=== PATIENT | female | born 1980 | race Caucasian/White ===

== ENCOUNTER 2016-07-02 03:33 | Emergency (ER) | payer OTHER ==
[~2016-07-02] VITALS: Ht 157.5 cm; Wt 54.5 kg
[2016-07-02 03:42] VITALS: TEMP 97.5
[2016-07-02 04:12] LABS: BASO # 0.1 (0.0-0.2); BASO % 0.6 % (0.0-2.0); EOS # 0.5 (0.0-0.7); EOS % 4.9 % (0-4.0); GRAN % 43.2 % (42.2-75.2); HEMATOCRIT 38.2 % (37.0-47.0); HEMOGLOBIN 13.5 g/dl (12.5-16.0); LYMPH # 4.2 (1.2-3.4); LYMPH % 44.7 % (20.0-51.0); MEAN CELL VOLUME 93 fl (80.0-100.0); MEAN CORPUSCULAR HEMOGLOBIN 33 pg (27.0-31.0); MEAN CORPUSCULAR HGB CONC 35 g/dl (33.0-37.0); MEAN PLATELET VOLUME 10.8 fl (7.4-10.4); MONO # 0.6 (0.1-0.6); MONO % 6.3 % (1.7-9.3); PLATELET COUNT 269 K/mm3 (130-400); RED BLOOD COUNT 4.12 M/mm3 (4.10-5.30); REDCELL DISTRIBUTION WIDTH-CV 13.2 % (11.5-14.5); WHITE BLOOD COUNT 9.4 K/mm3 (4.8-10.8)
[2016-07-02 04:19] LABS: PH 6 (5-8); SQUAMOUS EPITHELIAL 0-2 /hpf; URINE APPEARANCE Clear; URINE BACTERIA Rare /hpf; URINE BILIRUBIN Negative (NEGATIVE); URINE BLOOD 2+ (NEGATIVE); URINE COLOR Yellow; URINE GLUCOSE Negative (NEGATIVE); URINE KETONE Negative (NEGATIVE); URINE UROBILINOGEN Negative (NEGATIVE); URINE WBC 0-2 /hpf
[2016-07-02 04:22] LABS: CALCIUM 8.8 mg/dL (8.4-10.2); CREATININE, serum 0.56 mg/dL (0.52-1.25); POTASSIUM 3.5 mmol/L (3.4-5.0)
[2016-07-02] MEDS ORDERED: NORCO 325 MG-51 TAB PO (04:58)
[2016-07-02 05:18] VITALS: BP 128/76; PULSE 92
== END 2016-07-02 05:21 | disposition home or self-care (01) ==
LOC: COL.ER 03:33
PROVIDERS: Emergency Medicine
DX: N20.1 Calculus of ureter (principal); N23 Unspecified renal colic; F17.210 Nicotine dependence, cigarettes, uncomplicated; Z87.442 Personal history of urinary calculi
CPT/HCPCS: J1170; J1885; J2550; J7040

== ENCOUNTER 2016-10-31 13:48 | Emergency (ER) | payer OTHER ==
[~2016-10-31] VITALS: Ht 152.4 cm; Wt 59.5 kg
[~2016-10-31 13:48] MED LIST: NORCO 325 MG-51 TAB PO
[2016-10-31 13:50] VITALS: TEMP 99.4
[2016-10-31 14:32] LABS: PH 5 (5-8); SQUAMOUS EPITHELIAL 0-2 /hpf; URINE APPEARANCE Clear; URINE BACTERIA Rare /hpf; URINE BILIRUBIN Negative (NEGATIVE); URINE BLOOD 1+ (NEGATIVE); URINE COLOR Yellow; URINE GLUCOSE Negative (NEGATIVE); URINE KETONE Negative (NEGATIVE); URINE RBC 0-2 /hpf; URINE UROBILINOGEN Negative (NEGATIVE); URINE WBC 0-2 /hpf
[2016-10-31 14:32] LABS: BASO % 0.3 % (0.0-2.0); EOS # 0.2 (0.0-0.7); EOS % 2.1 % (0-4.0); GRAN # 5.6 (1.4-6.5); GRAN % 65.3 % (42.2-75.2); HEMATOCRIT 43.9 % (37.0-47.0); HEMOGLOBIN 15.2 g/dl (12.5-16.0); LYMPH # 2.3 (1.2-3.4); LYMPH % 26.6 % (20.0-51.0); MEAN CELL VOLUME 94 fl (80.0-100.0); MEAN CORPUSCULAR HEMOGLOBIN 33 pg (27.0-31.0); MEAN CORPUSCULAR HGB CONC 35 g/dl (33.0-37.0); MEAN PLATELET VOLUME 11.5 fl (7.4-10.4); MONO # 0.5 (0.1-0.6); MONO % 5.4 % (1.7-9.3); PLATELET COUNT 245 K/mm3 (130-400); RED BLOOD COUNT 4.67 M/mm3 (4.10-5.30); REDCELL DISTRIBUTION WIDTH-CV 13.1 % (11.5-14.5); WHITE BLOOD COUNT 8.6 K/mm3 (4.8-10.8)
[2016-10-31 14:44] LABS: ADJUSTED CALCIUM 9.2 mg/dL (8.4-10.2); ALANINE AMINOTRANSFERASE 27 U/L (9-52); ALBUMIN 4.6 gm/dL (3.5-5.0); ALKALINE PHOSPHATASE 74 U/L (50-136); ANION GAP 10 mmol/L (7-16); BILIRUBIN,TOTAL 0.8 mg/dL (0.0-1.0); BLOOD UREA NITROGEN 6 mg/dL (7-17); C-REACTIVE PROTEIN < 0.5 mg/dL (0.0-0.9); CALCIUM 9.7 mg/dL (8.4-10.2); CARBON DIOXIDE 21 mmol/L (22-30); CHLORIDE 108 mmol/L (98-107); CREATININE, serum 0.59 mg/dL (0.52-1.25); GLUCOSE 90 mg/dL (74-106); SODIUM 139 mmol/L (137-145); TOTAL PROTEIN 8.1 gm/dL (6.4-8.2)
[2016-10-31] MEDS ORDERED: ZOFRAN 4MG T4 MG/TAB PO (15:23)
[2016-10-31] MEDS ORDERED: NORCO 325 MG-51 TAB PO (15:23)
[2016-10-31 15:42] VITALS: BP 111/79; PULSE 70
== END 2016-10-31 15:40 | disposition home or self-care (01) ==
LOC: COL.ER 13:48
PROVIDERS: Emergency Medicine
DX: N23 Unspecified renal colic (principal); Z87.442 Personal history of urinary calculi
CPT/HCPCS: J1170; J2405; J7030

== ENCOUNTER 2017-03-26 07:47 | Emergency (ER) | payer SELFPAY ==
[~2017-03-26] VITALS: Ht 152.4 cm; Wt 60.0 kg
[~2017-03-26 07:47] MED LIST changes: +ZOFRAN 4MG T4 MG/TAB PO
[2017-03-26 07:53] VITALS: TEMP 99.3
[2017-03-26 08:34] LABS: COLLECTION METHOD CLEAN CATCH
[2017-03-26 08:42] LABS: BASO % 0.3 % (0.0-2.0); EOS % 0.2 % (0-4.0); GRAN # 3.9 (1.4-6.5); GRAN % 62.7 % (42.2-75.2); HEMATOCRIT 42.1 % (37.0-47.0); HEMOGLOBIN 14.4 g/dl (12.5-16.0); LYMPH # 1.7 (1.2-3.4); LYMPH % 27.8 % (20.0-51.0); MEAN CELL VOLUME 92 fl (80.0-100.0); MEAN CORPUSCULAR HEMOGLOBIN 31 pg (27.0-31.0); MEAN CORPUSCULAR HGB CONC 34 g/dl (33.0-37.0); MEAN PLATELET VOLUME 11.2 fl (7.4-10.4); MONO # 0.5 (0.1-0.6); MONO % 8.8 % (1.7-9.3); PLATELET COUNT 229 K/mm3 (130-400); REDCELL DISTRIBUTION WIDTH-CV 13.3 % (11.5-14.5)
[2017-03-26 08:50] LABS: ALBUMIN 4.3 gm/dL (3.5-5.0); BILIRUBIN,TOTAL 0.4 mg/dL (0.0-1.0); CREATININE, serum 0.62 mg/dL (0.52-1.25); POTASSIUM 3.8 mmol/L (3.4-5.0); TOTAL PROTEIN 7.6 gm/dL (6.4-8.2)
[2017-03-26 09:00] LABS: PH 7 (5-8); URINE APPEARANCE Hazy; URINE BILIRUBIN Negative (NEGATIVE); URINE BLOOD 2+ (NEGATIVE); URINE COLOR Yellow; URINE GLUCOSE Negative (NEGATIVE); URINE KETONE 1+ (NEGATIVE); URINE LEUKOCYTE ESTERASE Negative (NEGATIVE); URINE NITRATE Negative (NEGATIVE); URINE PROTEIN(semi-quant) Negative (NEGATIVE)
[2017-03-26 09:02] LABS: MUCOUS Present /lpf; URINE BACTERIA None Seen /hpf
[2017-03-26 10:17] VITALS: BP 105/80; PULSE 88
== END 2017-03-26 10:18 | disposition home or self-care (01) ==
LOC: COL.ER 07:47
PROVIDERS: Emergency Medicine
DX: B34.9 Viral infection, unspecified (principal)
CPT/HCPCS: J1885; J2765; J3010; J7030

== ENCOUNTER 2017-05-30 14:43 | Emergency (ER) | payer SELFPAY ==
[~2017-05-30] VITALS: Ht 152.4 cm; Wt 59.1 kg
[2017-05-30 14:44] VITALS: BP 134/59; PULSE 77; TEMP 98.4
[2017-05-30] MEDS ORDERED: IBU400 MG PO (14:50)
[2017-05-30] MEDS ORDERED: SUDAFED 12 HOU120 MG PO (14:50)
[2017-05-30] MEDS ORDERED: CLEOCIN HC150 MG/CAP PO (15:04)
== END 2017-05-30 15:09 | disposition home or self-care (01) ==
LOC: COL.ER 14:43
DX: J32.0 Chronic maxillary sinusitis (principal); F17.210 Nicotine dependence, cigarettes, uncomplicated; Z87.442 Personal history of urinary calculi

== ENCOUNTER 2017-08-01 12:50 | Emergency (ER) | payer SELFPAY ==
[~2017-08-01] VITALS: Ht 152.4 cm; Wt 59.1 kg
[~2017-08-01 12:50] MED LIST changes: +CLEOCIN HC150 MG/CAP PO; +IBU400 MG PO; +SUDAFED 12 HOU120 MG PO
[2017-08-01 12:54] VITALS: TEMP 98.2
[2017-08-01 13:14] LABS: COLLECTION METHOD CLEAN CATCH
[2017-08-01 13:17] LABS: BASO % 0.4 % (0.0-2.0); EOS # 0.1 (0.0-0.7); EOS % 1.2 % (0-4.0); GRAN # 6.4 (1.4-6.5); GRAN % 63.7 % (42.2-75.2); HEMATOCRIT 41.3 % (37.0-47.0); HEMOGLOBIN 14.7 g/dl (12.5-16.0); LYMPH # 2.9 (1.2-3.4); LYMPH % 28.6 % (20.0-51.0); MEAN CELL VOLUME 92 fl (80.0-100.0); MEAN CORPUSCULAR HEMOGLOBIN 33 pg (27.0-31.0); MEAN CORPUSCULAR HGB CONC 36 g/dl (33.0-37.0); MEAN PLATELET VOLUME 11.5 fl (7.4-10.4); MONO # 0.6 (0.1-0.6); MONO % 5.8 % (1.7-9.3); PLATELET COUNT 290 K/mm3 (130-400); REDCELL DISTRIBUTION WIDTH-CV 13.2 % (11.5-14.5)
[2017-08-01 13:21] LABS: MUCOUS Present /lpf; PH 7 (5-8); URINE APPEARANCE Hazy; URINE BACTERIA Rare /hpf; URINE BILIRUBIN Negative (NEGATIVE); URINE BLOOD Negative (NEGATIVE); URINE COLOR Yellow; URINE GLUCOSE Negative (NEGATIVE); URINE KETONE Negative (NEGATIVE); URINE LEUKOCYTE ESTERASE Negative (NEGATIVE); URINE NITRATE Negative (NEGATIVE); URINE PROTEIN(semi-quant) 1+ (NEGATIVE); URINE RBC 0-2 /hpf; URINE UROBILINOGEN Negative (NEGATIVE)
[2017-08-01 13:27] LABS: ALBUMIN 4.6 gm/dL (3.5-5.0); BILIRUBIN,TOTAL 0.8 mg/dL (0.0-1.0); CALCIUM 9.4 mg/dL (8.4-10.2); CREATININE, serum 0.61 mg/dL (0.52-1.25); POTASSIUM 3.6 mmol/L (3.4-5.0); TOTAL PROTEIN 8.5 gm/dL (6.4-8.2)
[2017-08-01] MEDS ORDERED: FLEXERIL 1010 MG/TAB PO (15:15)
[2017-08-01 15:23] VITALS: BP 143/60; PULSE 86
== END 2017-08-01 15:25 | disposition home or self-care (01) ==
LOC: COL.ER 12:50
PROVIDERS: Emergency Medicine
DX: R10.12 Left upper quadrant pain (principal); R10.32 Left lower quadrant pain; Z87.442 Personal history of urinary calculi
CPT/HCPCS: J1170; J1885; J2405; J7030; Q9967

== ENCOUNTER 2017-09-04 17:30 | Emergency (ER) | payer SELFPAY ==
[~2017-09-04] VITALS: Ht 152.4 cm; Wt 54.5 kg
[~2017-09-04 17:30] MED LIST changes: +FLEXERIL 1010 MG/TAB PO
[2017-09-04 17:45] VITALS: BP 118/78; TEMP 98.5
[2017-09-04 19:45] VITALS: PULSE 80
== END 2017-09-04 19:45 | disposition home or self-care (01) ==
LOC: COL.ER 17:30
DX: S93.601A Unspecified sprain of right foot, initial encounter (principal); F17.210 Nicotine dependence, cigarettes, uncomplicated; Z87.442 Personal history of urinary calculi; Z88.0 Allergy status to penicillin; X50.0XXA Overexertion from strenuous movement or load, initial encounter

== ENCOUNTER 2017-09-17 14:22 | Outpatient (RCR) | payer OTHER | END 2017-12-09 | disposition home or self-care (01) | LOC: WSOH | DX: S96.011A Strain of muscle and tendon of long flexor muscle of toe at ankle and foot level, right foot, initial encounter (principal); X50.0XXA Overexertion from strenuous movement or load, initial encounter; Y93.01 Activity, walking, marching and hiking; Y92.811 Bus as the place of occurrence of the external cause; Y99.0 Civilian activity done for income or pay; F17.210 Nicotine dependence, cigarettes, uncomplicated ==

== ENCOUNTER 2018-01-31 14:50 | Emergency (ER) | payer OTHER ==
[~2018-01-31] VITALS: Ht 152.4 cm; Wt 56.8 kg
[2018-01-31 15:01] VITALS: BP 118/64; PULSE 87; TEMP 97.1
[2018-01-31 15:15] LABS: COLLECTION METHOD CLEAN CATCH
[2018-01-31 15:24] LABS: MUCOUS Present /lpf; PH 6 (5-8); SQUAMOUS EPITHELIAL 0-2 /hpf; URINE APPEARANCE Clear; URINE BACTERIA Rare /hpf; URINE BILIRUBIN Negative (NEGATIVE); URINE BLOOD 3+ (NEGATIVE); URINE COLOR Yellow; URINE GLUCOSE Negative (NEGATIVE); URINE KETONE Negative (NEGATIVE); URINE LEUKOCYTE ESTERASE Negative (NEGATIVE); URINE NITRATE Negative (NEGATIVE); URINE PROTEIN(semi-quant) 1+ (NEGATIVE); URINE RBC >50 /hpf; URINE UROBILINOGEN Negative (NEGATIVE)
== END 2018-01-31 16:24 | disposition left against medical advice (07) ==
LOC: COL.ER 14:50
PROVIDERS: Emergency Medicine
DX: R10.9 Unspecified abdominal pain (principal); Z87.442 Personal history of urinary calculi; Z87.42 Personal history of other diseases of the female genital tract

== ENCOUNTER 2018-05-30 16:56 | Emergency (ER) | payer BC ==
[~2018-05-30] VITALS: Ht 152.4 cm; Wt 57.7 kg
[2018-05-30 17:01] VITALS: TEMP 99.6
[2018-05-30 17:17] LABS: COLLECTION METHOD CLEAN CATCH
[2018-05-30 17:23] LABS: BASO % 0.4 % (0.0-2.0); EOS # 0.2 (0.0-0.7); EOS % 1.5 % (0-4.0); GRAN # 6.5 (1.4-6.5); GRAN % 59.7 % (42.2-75.2); HEMATOCRIT 40.7 % (37.0-47.0); LYMPH # 3.5 (1.2-3.4); LYMPH % 32.3 % (20.0-51.0); MEAN CELL VOLUME 95 fl (80.0-100.0); MEAN CORPUSCULAR HEMOGLOBIN 33 pg (27.0-31.0); MEAN CORPUSCULAR HGB CONC 34 g/dl (33.0-37.0); MEAN PLATELET VOLUME 11.1 fl (7.4-10.4); MONO # 0.6 (0.1-0.6); MONO % 5.8 % (1.7-9.3); PLATELET COUNT 232 K/mm3 (130-400); RED BLOOD COUNT 4.27 M/mm3 (4.10-5.30); REDCELL DISTRIBUTION WIDTH-CV 12.9 % (11.5-14.5)
[2018-05-30 17:25] LABS: MUCOUS Present /lpf; PH 6 (5-8); URINE APPEARANCE Hazy; URINE BACTERIA Rare /hpf; URINE BILIRUBIN Negative (NEGATIVE); URINE BLOOD Negative (NEGATIVE); URINE COLOR Yellow; URINE GLUCOSE Negative (NEGATIVE); URINE KETONE Trace (NEGATIVE); URINE LEUKOCYTE ESTERASE Negative (NEGATIVE); URINE NITRATE Negative (NEGATIVE); URINE PROTEIN(semi-quant) Negative (NEGATIVE); URINE UROBILINOGEN Negative (NEGATIVE)
[2018-05-30 17:33] LABS: ALANINE AMINOTRANSFERASE 17 U/L (9-52); ALBUMIN 4.5 gm/dL (3.5-5.0); ALKALINE PHOSPHATASE 83 U/L (50-136); ANION GAP 5 mmol/L (7-16); AST,SGOT 26 U/L (15-37); BILIRUBIN,TOTAL 0.7 mg/dL (0.0-1.0); BLOOD UREA NITROGEN 13 mg/dL (7-17); CARBON DIOXIDE 27 mmol/L (22-30); CHLORIDE 104 mmol/L (98-107); CREATININE, serum 0.62 (0.52-1.25); GLUCOSE 84 mg/dL (74-106); LIPASE 112 U/L (23-300); POTASSIUM 3.8 mmol/L (3.4-5.0); SODIUM 136 mmol/L (137-145); TOTAL PROTEIN 7.8 gm/dL (6.4-8.2)
[2018-05-30 17:34] LABS: C-REACTIVE PROTEIN < 0.5 mg/dL (0.0-0.9)
[2018-05-30 19:37] VITALS: BP 93/57; PULSE 83
== END 2018-05-30 19:39 | disposition home or self-care (01) ==
LOC: COL.ER 16:56
PROVIDERS: Family Medicine
DX: R10.11 Right upper quadrant pain (principal)
CPT/HCPCS: J2270; J2405; J7030; Q9967

== ENCOUNTER 2019-02-19 12:52 | Emergency (ER) | payer BC ==
[~2019-02-19] VITALS: Ht 152.4 cm; Wt 57.3 kg
[2019-02-19 13:02] VITALS: BP 120/77; PULSE 80; TEMP 98.2
== END 2019-02-19 16:25 | disposition left against medical advice (07) ==
LOC: COL.ER 12:52
DX: R07.89 Other chest pain (principal)

== ENCOUNTER 2021-09-07 00:30 | Emergency (ER) | payer BC ==
[~2021-09-07] VITALS: Ht 152.4 cm; Wt 63.6 kg
[2021-09-07 00:35] VITALS: TEMP 98.3
[2021-09-07 01:15] LABS: BASO % 0.3 % (0.0-2.0); EOS # 0.4 K/mm3 (0.0-0.7); EOS % 4.1 % (0.0-4.0); GRAN # 4.8 K/mm3 (1.4-6.5); GRAN % 52.2 % (42.2-75.2); HEMOGLOBIN 12.1 g/dl (12.5-16.0); LYMPH # 3.3 K/mm3 (1.2-3.4); LYMPH % 36.1 % (20.0-51.0); MEAN CELL VOLUME 95 fl (80.0-100.0); MEAN CORPUSCULAR HEMOGLOBIN 33 pg (27-31); MEAN CORPUSCULAR HGB CONC 35 g/dl (33.0-37.0); MEAN PLATELET VOLUME 10.9 fl (7.4-10.4); MONO # 0.6 K/mm3 (0.1-0.6); PLATELET COUNT 241 K/mm3 (130-400); RED BLOOD COUNT 3.63 M/mm3 (4.10-5.30); REDCELL DISTRIBUTION WIDTH-CV 13.2 % (11.5-14.5)
[2021-09-07 01:21] LABS: HEMATOCRIT 34.6 % (37.0-47.0)
[2021-09-07 01:36] LABS: ALANINE AMINOTRANSFERASE 27 U/L (0-55); ALBUMIN 3.2 gm/dL (3.5-5.0); ALKALINE PHOSPHATASE 54 U/L (40-150); ANION GAP 9 mmol/L (7-16); AST,SGOT 21 U/L (5-34); BILIRUBIN,TOTAL 0.3 mg/dL (0.2-1.2); BLOOD UREA NITROGEN 12 mg/dL (7-19); CALCIUM 8.8 mg/dL (8.4-10.2); CARBON DIOXIDE 22 mmol/L (22-29); CHLORIDE 110 mmol/L (98-107); GLUCOSE 121 mg/dL (70-99); POTASSIUM 3.4 mmol/L (3.5-4.5); SODIUM 141 mmol/L (136-145); TOTAL PROTEIN 5.7 gm/dL (6.2-8.1)
[2021-09-07 01:47] LABS: TROPONIN-I < 0.010 ng/mL (0.00-0.033)
[2021-09-07 02:16] VITALS: BP 115/74; PULSE 62
== END 2021-09-07 02:16 | disposition home or self-care (01) ==
LOC: COL.ER 00:30
PROVIDERS: Emergency Medicine Emergency Medical Services
DX: M94.0 Chondrocostal junction syndrome [Tietze] (principal); Z28.310 Unvaccinated for COVID-19

== ENCOUNTER → 2022-06-06 | Emergency (ER) | payer BC | LOC: COL.ER 10:05 | DX: R69 Illness, unspecified (principal) ==